=== PATIENT | female | born 1995 ===

== ENCOUNTER 2019-04-04 18:56 | Emergency (ER) | payer OTHER ==
[~2019-04-04] VITALS: Ht 160 cm; Wt 44.1 kg
[2019-04-04 19:11] VITALS: BP 135/88
== END 2019-04-04 22:11 | disposition left against medical advice (07) ==
LOC: ER 18:58
DX: R10.2 Pelvic and perineal pain (principal); Z53.21 Procedure and treatment not carried out due to patient leaving prior to being seen by health care provider